=== PATIENT | female | born 2000 | race Caucasian/White ===

== ENCOUNTER 2018-06-06 13:05 | Outpatient (CLI) | payer BC ==
--- NOTE | 2018-06-06 14:09 | RAD ---
THREE VIEWS OF THE LEFT FOOT: 06/06/18 COMPARISON: None. HISTORY: Left foot pain. Dropped a suitcase on her foot a couple of times in the last two months with left gurpreet t pain. FINDINGS: Three views of the left foot shows no evidence of acute fracture or dislocation. No soft tissue swell ing is seen. No degenerative changes are present. IMPRESSION: No evidence of acute osseous abnormality. POS: [facility]
== END 2018-06-06 13:06 | disposition home or self-care (01) ==
LOC: BICRAD 13:05
PROVIDERS: ATTEND General Practice
DX: M79.672 Pain in left foot (principal)

== ENCOUNTER 2019-01-05 14:06 | Outpatient (CLI) | payer BC ==
--- NOTE | 2019-01-05 16:26 | RAD ---
RADIOGRAPH LEFT RIBS THREE VIEWS: 01/05/19 HISTORY: 18-year-old female with left rib pain and palpable lumps. FINDINGS: There is no evidence of recent or remote fracture or bone destruction. IMPRESSION: Negative. POS: C
--- NOTE | 2019-01-05 16:30 | RAD ---
RADIOGRAPH RIGHT RIBS 3 VIEWS: 01/05/19 HISTORY: 18-year-old female with right rib pain and palpable lumps. FINDINGS: No evidence of remote or recent fracture. No destructive osseous rib lesion. IMPRESSION: Negative. POS: C
== END 2019-01-05 14:07 | disposition home or self-care (01) ==
LOC: BICRAD 14:06
PROVIDERS: ATTEND General Practice
DX: R07.81 Pleurodynia (principal)